=== PATIENT | female | born 1965 | race Caucasian/White ===

== ENCOUNTER → 2022-02-04 | Outpatient (CLI) | payer OTHER | LOC: M PAIN 13:00 | PROVIDERS: ATTEND Nurse Practitioner Family | DX: M54.2 Cervicalgia (principal); G89.29 Other chronic pain; M79.7 Fibromyalgia; E03.9 Hypothyroidism, unspecified; Z86.59 Personal history of other mental and behavioral disorders; Z88.0 Allergy status to penicillin; Z88.2 Allergy status to sulfonamides; Z88.8 Allergy status to other drugs, medicaments and biological substances; E66.01 Morbid (severe) obesity due to excess calories; Z68.43 Body mass index [BMI] 50.0-59.9, adult; Z79.899 Other long term (current) drug therapy ==

== ENCOUNTER → 2022-02-04 | Outpatient (CLI) | payer OTHER | LOC: M RAD 14:44 | PROVIDERS: ATTEND Nurse Practitioner Family | DX: M50.31 Other cervical disc degeneration, high cervical region (principal); M50.321 Other cervical disc degeneration at C4-C5 level; M50.322 Other cervical disc degeneration at C5-C6 level; M50.323 Other cervical disc degeneration at C6-C7 level ==

== ENCOUNTER → 2022-04-27 | Outpatient (CLI) | payer OTHER | LOC: M PAIN 11:15 | PROVIDERS: ATTEND Nurse Practitioner Family | DX: M54.2 Cervicalgia (principal); G89.29 Other chronic pain; M79.7 Fibromyalgia; E03.9 Hypothyroidism, unspecified; Z86.59 Personal history of other mental and behavioral disorders; Z88.0 Allergy status to penicillin; Z88.2 Allergy status to sulfonamides; Z88.8 Allergy status to other drugs, medicaments and biological substances; Z79.890 Hormone replacement therapy; Z79.899 Other long term (current) drug therapy ==

== ENCOUNTER → 2022-06-25 | Outpatient (CLI) | payer OTHER | LOC: M RAD 10:32 | PROVIDERS: ATTEND Nurse Practitioner Family | DX: M50.21 Other cervical disc displacement, high cervical region (principal); M50.221 Other cervical disc displacement at C4-C5 level; M50.223 Other cervical disc displacement at C6-C7 level; M47.812 Spondylosis without myelopathy or radiculopathy, cervical region ==

== ENCOUNTER → 2022-07-07 | Outpatient (CLI) | payer OTHER | LOC: M PAIN 14:15 | PROVIDERS: ATTEND Nurse Practitioner Family | DX: M50.10 Cervical disc disorder with radiculopathy, unspecified cervical region (principal); G89.29 Other chronic pain; M48.00 Spinal stenosis, site unspecified; M79.7 Fibromyalgia; E03.9 Hypothyroidism, unspecified; Z86.59 Personal history of other mental and behavioral disorders; Z88.0 Allergy status to penicillin; Z88.2 Allergy status to sulfonamides; Z88.8 Allergy status to other drugs, medicaments and biological substances; E66.01 Morbid (severe) obesity due to excess calories; Z68.42 Body mass index [BMI] 45.0-49.9, adult; Z79.890 Hormone replacement therapy; Z79.899 Other long term (current) drug therapy ==

== ENCOUNTER → 2022-10-27 | Outpatient (CLI) | payer OTHER ==
[~2022-10-27] MED LIST: ALPR0.25; AMIT25TA17; BRIN10TA4; FAMO40TA3; FLUT15.820; HAIR1CHW PO; LAMO100T3; LEVO25TA5; VITA100093 PO; VITMTA PO; ZYRTTAB8 PO
== END ==
LOC: M LABSMTC 09:34
PROVIDERS: ATTEND Anesthesiology
DX: Z01.812 Encounter for preprocedural laboratory examination (principal); Z11.52 Encounter for screening for COVID-19

== ENCOUNTER 2022-11-01 07:32 | Day surgery (SDC) | payer OTHER ==
[~2022-11-01] VITALS: Ht 172.7 cm; Wt 87.0 kg
[~2022-11-01 07:32] MED LIST changes: +NS 1,000 ML IV ONE
[2022-11-01 09:58] VITALS: BP 117/76
== END 2022-11-01 10:00 | disposition home or self-care (01) ==
LOC: M OPP 07:32
PROVIDERS: ATTEND Internal Medicine Gastroenterology
DX: Z12.11 Encounter for screening for malignant neoplasm of colon (principal); Z86.010 Personal history of colon polyps; D12.2 Benign neoplasm of ascending colon; K63.5 Polyp of colon; Z79.1 Long term (current) use of non-steroidal anti-inflammatories (NSAID); Z79.51 Long term (current) use of inhaled steroids; Z79.890 Hormone replacement therapy; Z79.899 Other long term (current) drug therapy; Z88.0 Allergy status to penicillin; Z88.2 Allergy status to sulfonamides; I49.3 Ventricular premature depolarization; E03.9 Hypothyroidism, unspecified; K76.0 Fatty (change of) liver, not elsewhere classified; Z80.3 Family history of malignant neoplasm of breast

== ENCOUNTER 2024-10-29 11:59 | Day surgery (SDC) | payer OTHER ==
[~2024-10-29] VITALS: Ht 170.2 cm; Wt 73.8 kg
[~2024-10-29 11:59] MED LIST changes: +ALLE1DRO2 OU; -AMIT25TA17; +AMIT25TA19; +FLON1SPR; -NS 1,000 ML IV ONE; +NS 250 ML IV ONE; +PANT40TA29 PO; +SUCR1TAB56 PO; +SYNT25TA PO
[2024-10-29] MEDS ORDERED: LIDOCAINE 2% MDV 20ML VIAL As Ordered ONE (12:49)
[2024-10-29] MEDS ORDERED: propofoL 200 MG/20 ML VIAL As Ordered ONE (12:49)
[2024-10-29] MEDS ORDERED: fentaNYL 100 MCG/2 ML INJECTION As Ordered ONE (12:49)
[2024-10-29 14:05] VITALS: TEMP 98.5
[2024-10-29 14:25] VITALS: BP 106/55; O2SAT 95
== END 2024-10-29 15:00 | disposition home or self-care (01) ==
LOC: M OPP 11:59
PROVIDERS: ATTEND Internal Medicine Gastroenterology
DX: K57.30 Diverticulosis of large intestine without perforation or abscess without bleeding (principal); K64.8 Other hemorrhoids; Z86.0100 Personal history of colon polyps, unspecified; K31.7 Polyp of stomach and duodenum; R19.4 Change in bowel habit; R63.4 Abnormal weight loss; R10.9 Unspecified abdominal pain; Z88.1 Allergy status to other antibiotic agents; Z88.0 Allergy status to penicillin; Z88.2 Allergy status to sulfonamides; Z88.8 Allergy status to other drugs, medicaments and biological substances; Z79.899 Other long term (current) drug therapy
CPT/HCPCS: 43239; 45378; 88305; J3010

== ENCOUNTER → 2024-12-04 | Outpatient (CLI) | payer OTHER ==
[~2024-12-04] MED LIST changes: +FAMO20TA5 PO; +GASTROGRAFIN SOLUTION 30ML ONE; -NS 250 ML IV ONE
== END ==
LOC: M PLAIMG 08:47
PROVIDERS: ATTEND Physician Assistant Medical
DX: R63.4 Abnormal weight loss (principal); R19.4 Change in bowel habit; R10.13 Epigastric pain; M51.27 Other intervertebral disc displacement, lumbosacral region; M48.07 Spinal stenosis, lumbosacral region; M47.816 Spondylosis without myelopathy or radiculopathy, lumbar region; K44.9 Diaphragmatic hernia without obstruction or gangrene; K80.20 Calculus of gallbladder without cholecystitis without obstruction
CPT/HCPCS: 74176; Q9963

== ENCOUNTER 2024-12-09 11:31 | Day surgery (SDC) | payer OTHER ==
[~2024-12-09] VITALS: Ht 172.7 cm; Wt 70.2 kg
[~2024-12-09 11:31] MED LIST changes: +ACETAMINOPHEN 1000MG/100ML IV BAG As Ordered ONE; -GASTROGRAFIN SOLUTION 30ML ONE; +LIDOCAINE 2% 100MG/5ML SDV (FOR ANES.) As Ordered ONE; +MIDAZOLAM INJ 2MG/2ML VIAL As Ordered ONE; +ONDANSETRON 4MG 2ML VIAL As Ordered ONE; +ROCURONIUM BROMIDE 50MG/5ML VIAL As Ordered ONE; +SUGAMMADEX SODIUM 500 MG/5 ML VIAL (BRIDION) As Ordered ONE; +fentaNYL 100 MCG/2 ML INJECTION As Ordered ONE; +propofoL 200 MG/20 ML VIAL As Ordered ONE
[2024-12-09] MEDS ORDERED: LR 1,000 ML IV SCH ×2 (12:20→14:40)
[2024-12-09] MEDS: ceFAZolin SOD 2 GM in IV 1 EA IV ONE (12:38)
[2024-12-09] MEDS: INDOCYANINE GREEN 25MG VIAL (IC-GREEN) IV ONE (12:41)
[2024-12-09] MEDS: INDOCYANINE GREEN 25MG VIAL (IC-GREEN) As Ordered ONE (13:07)
[2024-12-09] MEDS: HEPARIN SOD (PORCINE) 5000UNITS/ML 1ML VIAL/SYRINGE SQ ONE (13:40)
[2024-12-09] MEDS ORDERED: KETOROLAC 60MG 2ML VIAL As Ordered ONE (13:58)
[2024-12-09] MEDS ORDERED: fentaNYL 100 MCG/2 ML INJECTION IV PRN (14:40)
[2024-12-09] MEDS ORDERED: ONDANSETRON 4MG 2ML VIAL IV PRN (14:40)
[2024-12-09] MEDS ORDERED: HYDROMORPHONE HCL 0.5 MG/ 0.5 ML SYRINGE IV PRN (14:40)
[2024-12-09] MEDS ORDERED: oxyCODONE 5MG TAB PO PRN (14:40)
[2024-12-09] MEDS ORDERED: HYDR-3713 PO (15:08)
[2024-12-09 16:05] VITALS: BP 145/67; TEMP 96.5; O2SAT 99
== END 2024-12-09 16:17 | disposition home or self-care (01) ==
LOC: M SDC 11:31
PROVIDERS: ATTEND Surgery
DX: K80.20 Calculus of gallbladder without cholecystitis without obstruction (principal); K76.0 Fatty (change of) liver, not elsewhere classified; K21.9 Gastro-esophageal reflux disease without esophagitis; F31.9 Bipolar disorder, unspecified; F32.A Depression, unspecified; F41.9 Anxiety disorder, unspecified; E03.9 Hypothyroidism, unspecified; Z79.899 Other long term (current) drug therapy; Z88.0 Allergy status to penicillin; Z88.2 Allergy status to sulfonamides; Z88.8 Allergy status to other drugs, medicaments and biological substances; Z88.1 Allergy status to other antibiotic agents
CPT/HCPCS: 47562; 88304; J0131; J0665; J0690; J1885; J2250; J2405; J3010; Q9968; S2900

== ENCOUNTER 2025-07-09 15:59 | Emergency (ER) | payer OTHER ==
[~2025-07-09] VITALS: Ht 170.2 cm; Wt 64.0 kg
[~2025-07-09 15:59] MED LIST changes: -ACETAMINOPHEN 1000MG/100ML IV BAG As Ordered ONE; +HYDR-3713 PO; -LIDOCAINE 2% 100MG/5ML SDV (FOR ANES.) As Ordered ONE; -MIDAZOLAM INJ 2MG/2ML VIAL As Ordered ONE; -ONDANSETRON 4MG 2ML VIAL As Ordered ONE; -ROCURONIUM BROMIDE 50MG/5ML VIAL As Ordered ONE; -SUGAMMADEX SODIUM 500 MG/5 ML VIAL (BRIDION) As Ordered ONE; -fentaNYL 100 MCG/2 ML INJECTION As Ordered ONE; -propofoL 200 MG/20 ML VIAL As Ordered ONE
[2025-07-09 16:04] VITALS: O2SAT 99
[2025-07-09 16:58] LABS: BASO # 0.0 10^3/uL (0.0-0.2); BASO % 0.5 % (0.0-1.0); EOS # 0.1 10^3/uL (0.0-0.5); EOS % 0.9 % (0.0-3.0); LYMPH # 1.2 10^3/uL (1.5-5.0); LYMPH % 18.5 % (24.0-44.0); MONO # 0.4 10^3/uL (0.0-0.8); MONO % 6.8 % (2.0-8.0); NEUTROPHILS # 4.8 10^3/uL (1.5-8.5); NEUTROPHILS % 73.1 % (36.0-66.0); PLATELET COUNT, AUTOMATED 294 10^3/uL (150-450)
[2025-07-09 17:31] LABS: CALCIUM LEVEL 9.1 MG/DL (8.3-10.6); CARBON DIOXIDE LEVEL 26.0 MMOL/L (20-31); CHLORIDE LEVEL 101.0 MMOL/L (98-107); CREATININE FOR GFR 0.79 MG/DL (0.55-1.30); GLOMERULAR FILTRATION RATE 84.5 (>45); MAGNESIUM LEVEL 2.2 MG/DL (1.8-2.4); POTASSIUM SERUM 4.3 MMOL/L (3.5-5.1); SODIUM LEVEL 136.0 MMOL/L (136-145)
[2025-07-09 17:34] LABS: FREE T4 1.48 NG/DL (0.89-1.76)
[2025-07-09 18:04] VITALS: BP 132/74; TEMP 97
== END 2025-07-09 18:05 | disposition home or self-care (01) ==
LOC: M ED 15:59
DX: R42 Dizziness and giddiness (principal); K21.9 Gastro-esophageal reflux disease without esophagitis; F41.9 Anxiety disorder, unspecified; F32.9 Major depressive disorder, single episode, unspecified; Z79.899 Other long term (current) drug therapy; Z88.0 Allergy status to penicillin; Z88.1 Allergy status to other antibiotic agents; Z88.2 Allergy status to sulfonamides; Z88.8 Allergy status to other drugs, medicaments and biological substances

== ENCOUNTER 2025-07-12 13:59 | Inpatient (IN) | payer OTHER ==
[~2025-07-12] VITALS: Ht 170.2 cm; Wt 63.0 kg
[2025-07-12] MEDS: FLUTICASONE PROPIONATE 0.05% NASAL SPRAY 16 GM SCH (00:59)
[2025-07-12 15:53] LABS: PLATELET COUNT, AUTOMATED 324 10^3/uL (150-450)
[2025-07-12 16:11] LABS: ALT/SGPT 17 U/L (7.0-40); AST/SGOT 17 U/L (<34); CALCIUM LEVEL 9.9 MG/DL (8.3-10.6); CARBON DIOXIDE LEVEL 27 MMOL/L (20-31); CHLORIDE LEVEL 99 MMOL/L (98-107); CREATININE FOR GFR 0.79 MG/DL (0.55-1.30); GLOMERULAR FILTRATION RATE 84.5 (>45); POTASSIUM SERUM 4.0 MMOL/L (3.5-5.1); SALICYLATE LEVEL < 3.0 MG/DL (<30); SODIUM LEVEL 136 MMOL/L (136-145)
[2025-07-12 16:12] LABS: ETHYL ALCOHOL (ETHANOL) < 0.003 % (0.000-0.010)
[2025-07-12 16:22] LABS: AMPHETAMINES LEVEL URINE NEGATIVE (NEGATIVE); BARBITURATES URINE NEGATIVE (NEGATIVE); BENZODIAZEPINES URINE NEGATIVE (NEGATIVE); CANNABINOIDS URINE NEGATIVE (NEGATIVE); COCAINE METABOLITE URINE NEGATIVE (NEGATIVE); METHADONE URINE NEGATIVE (NEGATIVE); OPIATES URINE NEGATIVE (NEGATIVE); PHENCYCLIDINE URINE NEGATIVE (NEGATIVE)
[2025-07-12] MEDS ORDERED: SENN-186 PO (17:52)
[2025-07-12] MEDS ORDERED: HOME MED LIST COMPLETE! XX SCH (17:55)
[2025-07-12] MEDS ORDERED: ALPR0.25 PO (17:55)
[2025-07-12] MEDS ORDERED: MAALOX 30 ML SUSP *UDC PO PRN (19:45)
[2025-07-12] MEDS ORDERED: traZODone 50 MG TAB PO PRN (19:45)
[2025-07-12] MEDS: SENNA 8.6 MG TAB PO SCH (21:00)
[2025-07-12] MEDS: ACETAMINOPHEN 325 MG TAB PO PRN (22:04)
[2025-07-12 22:35] VITALS: BP 142/70; TEMP 98.4; O2SAT 97
[2025-07-12 23:17] VITALS: BP 143/69; TEMP 97; O2SAT 97
[2025-07-13] MEDS: LEVOTHYROXINE 25 MCG TABLET (0.025MG) PO SCH (06:25)
[2025-07-13 06:49] VITALS: BP 132/60; TEMP 98.1; O2SAT 97
[2025-07-13 15:34] VITALS: BP 134/70; TEMP 97.5; O2SAT 98
[2025-07-13] MEDS ORDERED: diphenhydrAMINE 12.5 MG/5 ML ELIXIR UDC PO PRN (16:20)
[2025-07-13] MEDS: clonazePAM 0.5 MG TAB PO PRN (20:32)
[2025-07-13] MEDS: MIRTAZAPINE 7.5 MG PER 1/2 TABLET PO SCH (20:32)
[2025-07-14 06:29] VITALS: BP 109/57; TEMP 96.8; O2SAT 98
[2025-07-14 15:46] VITALS: BP 125/64; TEMP 96.5; O2SAT 98
[2025-07-15 06:39] VITALS: BP 124/67; TEMP 97.5; O2SAT 98
[2025-07-15] MEDS: SERTRALINE HCL 25 MG TABLET PO SCH (10:58)
[2025-07-15 15:12] LABS: FREE T4 1.5 NG/DL (0.89-1.76)
[2025-07-15 15:14] LABS: TOTAL 25(OH) VITAMIN D 44.0 NG/ML (20.0-100.0)
[2025-07-15 15:21] LABS: MAGNESIUM LEVEL 2.3 MG/DL (1.8-2.4)
[2025-07-15 18:56] VITALS: BP 133/86; TEMP 98.3; O2SAT 98
[2025-07-16 06:39] VITALS: BP 132/68; TEMP 97.5; O2SAT 98
[2025-07-16 17:21] VITALS: BP 128/61; TEMP 97.4; O2SAT 98
[2025-07-17 06:42] VITALS: BP 134/60; TEMP 98; O2SAT 98
[2025-07-17] MEDS: PROPRANOLOL 10 MG TAB PO PRN (11:00)
[2025-07-17 15:57] VITALS: BP 129/61; TEMP 97.9; O2SAT 100
[2025-07-17] MEDS: DOCUSATE SODIUM 100 MG CAPSULE PO SCH (20:33)
[2025-07-18 07:04] VITALS: BP 136/62; TEMP 97.1; O2SAT 99
[2025-07-18] MEDS: SERTRALINE HCL 50 MG TAB PO SCH (08:40)
[2025-07-18] MEDS: MOM 30 ML SUSPENSION UDC PO PRN (10:56)
[2025-07-18 15:19] VITALS: BP 125/58; TEMP 98; O2SAT 99
[2025-07-19 06:27] VITALS: BP 132/59; TEMP 97.1; O2SAT 98
[2025-07-19 15:43] VITALS: BP 125/60; TEMP 98.4; O2SAT 97
[2025-07-20 04:35] VITALS: BP 132/80
[2025-07-20 06:17] VITALS: BP 138/63; TEMP 97.1; O2SAT 98
[2025-07-20] MEDS ORDERED: PROPRANOLOL 10 MG TAB PO PRN (13:40)
[2025-07-20 15:29] VITALS: BP 129/58; TEMP 98.1; O2SAT 98
[2025-07-20] MEDS: RAMELTEON 8 MG TAB PO SCH (20:41)
[2025-07-21 06:26] VITALS: BP 126/58; TEMP 97.9; O2SAT 97
[2025-07-21] MEDS ORDERED: CLON0.5T2 PO (13:58)
[2025-07-21 15:08] VITALS: BP 114/55; TEMP 98.2; O2SAT 97
[2025-07-21] MEDS: MIRTAZAPINE 15 MG TAB PO SCH (20:35)
[2025-07-22] MEDS ORDERED: MIRT-10 PO (02:47)
[2025-07-22] MEDS ORDERED: HYDR-3363 PO (02:47)
[2025-07-22] MEDS ORDERED: SERT50TA29 PO (02:47)
[2025-07-22 06:39] VITALS: BP 124/58; TEMP 98; O2SAT 98
== END 2025-07-22 16:40 | disposition home or self-care (01) | DRG 756 ==
LOC: M ED 13:59 → M ED INP 19:45 → M PSY 23:08
PROVIDERS: ADMIT Student in an Organized Health Care Education/Training Program; ATTEND Student in an Organized Health Care Education/Training Program
DX: F41.1 Generalized anxiety disorder (principal); F41.0 Panic disorder [episodic paroxysmal anxiety]; F33.1 Major depressive disorder, recurrent, moderate; F43.10 Post-traumatic stress disorder, unspecified; K21.9 Gastro-esophageal reflux disease without esophagitis; Z79.899 Other long term (current) drug therapy; R45.851 Suicidal ideations; G62.9 Polyneuropathy, unspecified; E03.9 Hypothyroidism, unspecified; K76.0 Fatty (change of) liver, not elsewhere classified; M79.7 Fibromyalgia; Z88.0 Allergy status to penicillin; Z88.2 Allergy status to sulfonamides; Z88.6 Allergy status to analgesic agent; Z88.8 Allergy status to other drugs, medicaments and biological substances

== ENCOUNTER 2025-07-13 17:51 | Emergency (ER) | payer OTHER ==
[~2025-07-13 17:51] MED LIST changes: +ALPR0.25 PO; +SENN-186 PO
== END 2025-07-13 22:02 | disposition left against medical advice (07) ==
LOC: M ED 17:51
DX: Z53.9 Procedure and treatment not carried out, unspecified reason (principal)